=== PATIENT | female | born 1950 | race Asian ===

== ENCOUNTER 2017-12-15 23:28 | Outpatient (CLI) | payer MEDICARE | END 2017-12-15 23:29 | disposition short-term general hospital (02) | LOC: EMS 23:28 | PROVIDERS: ATTEND Surgery | DX: R55 Syncope and collapse (principal); R07.9 Chest pain, unspecified | CPT/HCPCS: A0425; A0427 ==

== ENCOUNTER 2022-01-28 14:34 | Outpatient (CLI) | payer MEDICARE | END 2022-01-28 14:35 | disposition left against medical advice (07) | LOC: EMS 14:34 | DX: R55 Syncope and collapse (principal) ==

== ENCOUNTER 2022-03-25 08:00 | Outpatient (CLI) | payer MEDICARE | END 2022-03-25 23:59 | disposition home or self-care (01) | LOC: LAB 08:00 | PROVIDERS: ATTEND Registered Nurse | DX: R25.1 Tremor, unspecified (principal); R82.79 Other abnormal findings on microbiological examination of urine; R30.0 Dysuria; R35.0 Frequency of micturition | CPT/HCPCS: 87086 ==

== ENCOUNTER 2022-03-25 14:35 | Outpatient (CLI) | payer MEDICARE ==
[2022-03-25 19:57] LABS: BASOPHILS # (AUTO) 0.1 10^3/uL (0.0-0.1); BASOPHILS % (AUTO) 0.8 %; EOSINOPHILS # (AUTO) 0.2 10^3/uL (0.0-0.7); EOSINOPHILS % (AUTO) 2.7 %; HGB - HEMOGLOBIN 10.6 g/dL (12.0-16.0); LYMPHOCYTES # (AUTO) 3.2 10^3/uL (1.5-3.5); MEAN CORPUSCULAR HEMOGLOBIN 29.4 pg (27.0-31.0); MEAN CORPUSCULAR HGB CONC 30.3 g/dL (32.0-36.0); MEAN CORPUSCULAR VOLUME 97.2 fL (81.0-99.0); MEAN PLATELET VOLUME 8.6 fL (7.9-10.8); MONOCYTES # (AUTO) 0.6 10^3/uL (0.0-1.0); MONOCYTES % (AUTO) 7.8 %; NEUTROPHILS # (AUTO) 3.8 10^3/uL (1.5-6.6); NEUTROPHILS % (AUTO) 48.4 %; PLT - PLATELET COUNT 394 10^3/uL (130-450); RED CELL DISTRIBUTION WIDTH 19.8 % (12.0-15.0); WHITE BLOOD COUNT 7.9 x10^3/uL (4.8-10.8)
[2022-03-25 20:11] LABS: ALBUMIN 3.8 g/dL (3.2-5.5); ALBUMIN/GLOBULIN RATIO 1.2 (1.0-2.2); BILIRUBIN,TOTAL 0.5 mg/dL (0.2-1.0); CREATININE 0.9 mg/dL (0.4-1.0); TOTAL PROTEIN 7.1 g/dL (6.7-8.2)
[2022-03-25 20:29] LABS: THYROID STIMULATING HORMONE 0.87 uIU/mL (0.34-5.60)
== END 2022-03-25 14:36 | disposition home or self-care (01) ==
LOC: LAB.S 14:35
PROVIDERS: ATTEND Emergency Medicine
DX: R20.2 Paresthesia of skin (principal); R25.1 Tremor, unspecified
CPT/HCPCS: 36415; 80053; 84443; 85025

== ENCOUNTER 2022-08-31 18:27 | Outpatient (CLI) | payer MEDICARE ==
--- NOTE | 2022-08-31 19:53 | XRAY Report ---
PROCEDURE: Lumbar Spine 2 View INDICATIONS: LUMBAR PAIN AFTER FALL TECHNIQUE: 3 views of the lumbar spine were acquired. COMPARISON: None. FINDINGS: Bones: Generalized osteopenia. 5 [id number]-apuaxms vertebrae are present. There is mild levoconvex cur vature of the thoracolumbar spine. Mild grade 1 anterolisthesis of L4 on L5 is seen measuring 4 mm. 4 mm grade 1 anterolisthesis is also seen at L5 on S1. No vertebral body compression fractures. No conte spicious bony lesions. Multilevel disc space narrowing and degenerative endplate changes are most pr ominent at L5-S1 level. There is facet hypertrophy that is most prominent at L3-4 through L5-S1. Soft tissues: Overlying bowel gas pattern is normal. Aortic atherosclerotic calcifications are prese nt. Proximal common iliac artery calcifications appear dilated, and aneurysmal dilatation is not excl uded. IMPRESSION: 1.Generalized osteopenia. No acute vertebral body compression fracture identified. 2.Moderate multilevel spondylosis and degenerative spondylolisthesis. 3.Aortic atherosclerosis. Common iliac arteries appear mildly dilated proximally and aneurysmal dilat ation is not excluded. Aortic ultrasound could be performed for further evaluation if indicated clini da. Reviewed by: Brandon Scott MD on 08/31/2022 7:51 PM PST Approved by: Brandon Scott MD on 08/31/2022 7:51 PM PST Station ID: [id number]
--- NOTE | 2022-08-31 20:01 | XRAY Report ---
PROCEDURE: Elbow 3 View RT INDICATIONS: RIGHT ELBOW PAIN AFTER FALL TECHNIQUE: 3 views of the elbow were acquired. COMPARISON: None. FINDINGS: Bones: No acute fractures or dislocations. No suspicious bony lesions. Soft tissues: Possible posterior fat pad may indicate a small effusion. However, lateral view is very mildly rotated. No suspicious soft tissue calcifications. Small posterior olecranon enthesophyte. Nonspecific soft tissue prominence over the olecranon process. IMPRESSION: No acute osseous abnormality identified. However, suspected small joint effusion raises the possibili ty of a radiographically occult fracture. Recommend correlation with clinical signs and symptoms and possible follow-up radiographs in 7-10 days, versus MRI or CT if indicated clinically. Reviewed by: Brandon Scott MD on 08/31/2022 7:59 PM PST Approved by: Brandon Scott MD on 08/31/2022 7:59 PM PST Station ID: [id number]
== END 2022-08-31 18:28 | disposition home or self-care (01) ==
LOC: DI.S 18:27
PROVIDERS: ATTEND Registered Nurse
DX: M47.816 Spondylosis without myelopathy or radiculopathy, lumbar region (principal); M85.88 Other specified disorders of bone density and structure, other site; M47.817 Spondylosis without myelopathy or radiculopathy, lumbosacral region; M43.17 Spondylolisthesis, lumbosacral region; I70.0 Atherosclerosis of aorta; M25.521 Pain in right elbow

== ENCOUNTER 2022-09-04 14:34 | Outpatient (CLI) | payer MEDICARE ==
[2022-09-04 20:05] LABS: BASOPHILS # (AUTO) 0.1 10^3/uL (0.0-0.1); BASOPHILS % (AUTO) 0.6 %; EOSINOPHILS # (AUTO) 0.1 10^3/uL (0.0-0.7); EOSINOPHILS % (AUTO) 0.9 %; HCT - HEMATOCRIT 32.3 % (37.0-47.0); HGB - HEMOGLOBIN 9.9 g/dL (12.0-16.0); LYMPHOCYTES # (AUTO) 3.1 10^3/uL (1.5-3.5); LYMPHOCYTES % (AUTO) 29.8 %; MEAN CORPUSCULAR HEMOGLOBIN 29.2 pg (27.0-31.0); MEAN CORPUSCULAR HGB CONC 30.7 g/dL (32.0-36.0); MEAN CORPUSCULAR VOLUME 95.3 fL (81.0-99.0); MEAN PLATELET VOLUME 8.5 fL (7.9-10.8); MONOCYTES # (AUTO) 0.7 10^3/uL (0.0-1.0); MONOCYTES % (AUTO) 6.8 %; NEUTROPHILS # (AUTO) 6.4 10^3/uL (1.5-6.6); NEUTROPHILS % (AUTO) 61.6 %; PLT - PLATELET COUNT 310 10^3/uL (130-450); RED BLOOD COUNT 3.39 10^6/uL (4.20-5.40); RED CELL DISTRIBUTION WIDTH 18.7 % (12.0-15.0); WHITE BLOOD COUNT 10.4 x10^3/uL (4.8-10.8)
[2022-09-04 21:38] LABS: ESTIMATED AVERAGE GLUCOSE 117 mg/dL (70-100); HEMOGLOBIN A1c% 5.7 % (4.27-6.07)
== END 2022-09-04 14:35 | disposition home or self-care (01) ==
LOC: LAB.S 14:34
PROVIDERS: ATTEND Registered Nurse
DX: R73.09 Other abnormal glucose (principal); R00.0 Tachycardia, unspecified; E66.9 Obesity, unspecified
CPT/HCPCS: 36415; 83036; 85025

== ENCOUNTER 2022-09-10 14:47 | Outpatient (CLI) | payer MEDICARE ==
[2022-09-10 19:52] LABS: ABSOLUTE RETICS # AUTO 0.039 10^6/uL (0.020-0.110); RED BLOOD COUNT 3.43 10^6/uL (4.20-5.40); RETICULOCYTE COUNT % (AUTO) 1.15 % (0.5-2.3)
[2022-09-10 20:08] LABS: % IRON SATURATION 6 % (20-50); IRON 18 ug/dL (28-170); TOTAL IRON BINDING CAPACITY 325 ug/dL (250-450); TRANSFERRIN 232 mg/dL (192-382)
== END 2022-09-10 14:48 | disposition home or self-care (01) ==
LOC: LAB.S 14:47
PROVIDERS: ATTEND Registered Nurse
DX: D50.9 Iron deficiency anemia, unspecified (principal)
CPT/HCPCS: 36415; 82607; 82728; 82746; 83540; 84466; 85045

== ENCOUNTER 2022-10-09 12:33 | Outpatient (CLI) | payer MEDICARE ==
[2022-10-09 14:56] LABS: BASOPHILS # (AUTO) 0.1 10^3/uL (0.0-0.1); BASOPHILS % (AUTO) 0.7 %; EOSINOPHILS # (AUTO) 0.2 10^3/uL (0.0-0.7); EOSINOPHILS % (AUTO) 2.5 %; HCT - HEMATOCRIT 34.1 % (37.0-47.0); HGB - HEMOGLOBIN 10.6 g/dL (12.0-16.0); LYMPHOCYTES # (AUTO) 2.9 10^3/uL (1.5-3.5); LYMPHOCYTES % (AUTO) 37.9 %; MEAN CORPUSCULAR HEMOGLOBIN 30.3 pg (27.0-31.0); MEAN CORPUSCULAR HGB CONC 31.1 g/dL (32.0-36.0); MEAN CORPUSCULAR VOLUME 97.4 fL (81.0-99.0); MEAN PLATELET VOLUME 8.9 fL (7.9-10.8); MONOCYTES # (AUTO) 0.9 10^3/uL (0.0-1.0); MONOCYTES % (AUTO) 11.2 %; NEUTROPHILS # (AUTO) 3.6 10^3/uL (1.5-6.6); NEUTROPHILS % (AUTO) 47.4 %; PLT - PLATELET COUNT 290 10^3/uL (130-450); RED CELL DISTRIBUTION WIDTH 17.4 % (12.0-15.0); WHITE BLOOD COUNT 7.7 x10^3/uL (4.8-10.8)
[2022-10-09 15:53] LABS: ALBUMIN 3.9 g/dL (3.2-5.5); ALBUMIN/GLOBULIN RATIO 1.2 (1.0-2.2); BILIRUBIN,TOTAL 0.5 mg/dL (0.2-1.0); CALCIUM 9.1 mg/dL (8.5-10.3); CREATININE 0.9 mg/dL (0.4-1.0); MAGNESIUM 2.2 mg/dL (1.7-2.8); POTASSIUM 3.8 mmol/L (3.5-5.0); TOTAL PROTEIN 7.1 g/dL (6.7-8.2)
== END 2022-10-09 12:34 | disposition home or self-care (01) ==
LOC: LAB.S 12:33
PROVIDERS: ATTEND Registered Nurse
DX: D50.9 Iron deficiency anemia, unspecified (principal); I70.0 Atherosclerosis of aorta; E66.9 Obesity, unspecified; R00.0 Tachycardia, unspecified; R53.83 Other fatigue
CPT/HCPCS: 36415; 80053; 81599; 83540; 83735; 84466; 85025; 86038; 86225; 86235

== ENCOUNTER 2022-10-16 13:54 | Outpatient (CLI) | payer MEDICARE ==
[2022-10-16 19:58] LABS: BASOPHILS # (AUTO) 0.1 10^3/uL (0.0-0.1); EOSINOPHILS # (AUTO) 0.2 10^3/uL (0.0-0.7); EOSINOPHILS % (AUTO) 2.6 %; HCT - HEMATOCRIT 35.9 % (37.0-47.0); HGB - HEMOGLOBIN 10.9 g/dL (12.0-16.0); LYMPHOCYTES % (AUTO) 39.3 %; MEAN CORPUSCULAR HEMOGLOBIN 29.5 pg (27.0-31.0); MEAN CORPUSCULAR HGB CONC 30.4 g/dL (32.0-36.0); MEAN PLATELET VOLUME 9.3 fL (7.9-10.8); MONOCYTES # (AUTO) 0.7 10^3/uL (0.0-1.0); MONOCYTES % (AUTO) 9.4 %; NEUTROPHILS # (AUTO) 3.6 10^3/uL (1.5-6.6); NEUTROPHILS % (AUTO) 47.6 %; PLT - PLATELET COUNT 321 10^3/uL (130-450); RED CELL DISTRIBUTION WIDTH 17.3 % (12.0-15.0); WHITE BLOOD COUNT 7.6 x10^3/uL (4.8-10.8)
[2022-10-16 20:18] LABS: ALBUMIN 3.8 g/dL (3.2-5.5); ALBUMIN/GLOBULIN RATIO 1.3 (1.0-2.2); BILIRUBIN,TOTAL 0.5 mg/dL (0.2-1.0); CALCIUM 9.1 mg/dL (8.5-10.3); POTASSIUM 4.3 mmol/L (3.5-5.0); TOTAL PROTEIN 6.8 g/dL (6.7-8.2)
[2022-10-16 21:18] LABS: FOLATE > 49.60 ng/mL (5.90 - >24.8)
== END 2022-10-16 13:55 | disposition home or self-care (01) ==
LOC: LAB.S 13:54
PROVIDERS: ATTEND Registered Nurse
DX: E87.1 Hypo-osmolality and hyponatremia (principal); D50.9 Iron deficiency anemia, unspecified
CPT/HCPCS: 36415; 80053; 82607; 82746; 83540; 84466; 85025

== ENCOUNTER 2023-01-18 08:00 | Outpatient (CLI) | payer MEDICARE ==
[2023-01-18 20:29] LABS: BASOPHILS # (AUTO) 0.1 10^3/uL (0.0-0.1); BASOPHILS % (AUTO) 0.7 %; EOSINOPHILS # (AUTO) 0.2 10^3/uL (0.0-0.7); HCT - HEMATOCRIT 37.3 % (37.0-47.0); HGB - HEMOGLOBIN 11.8 g/dL (12.0-16.0); LYMPHOCYTES # (AUTO) 2.9 10^3/uL (1.5-3.5); LYMPHOCYTES % (AUTO) 43.9 %; MEAN CORPUSCULAR HGB CONC 31.6 g/dL (32.0-36.0); MEAN CORPUSCULAR VOLUME 101.1 fL (81.0-99.0); MEAN PLATELET VOLUME 9.5 fL (7.9-10.8); MONOCYTES # (AUTO) 0.7 10^3/uL (0.0-1.0); MONOCYTES % (AUTO) 10.5 %; NEUTROPHILS # (AUTO) 2.8 10^3/uL (1.5-6.6); NEUTROPHILS % (AUTO) 41.8 %; PLT - PLATELET COUNT 281 10^3/uL (130-450); RED BLOOD COUNT 3.69 10^6/uL (4.20-5.40); RED CELL DISTRIBUTION WIDTH 15.5 % (12.0-15.0); WHITE BLOOD COUNT 6.7 x10^3/uL (4.8-10.8)
[2023-01-18 20:35] LABS: ALBUMIN 3.7 g/dL (3.2-5.5); ALBUMIN/GLOBULIN RATIO 1.2 (1.0-2.2); BILIRUBIN,TOTAL 0.2 mg/dL (0.2-1.0); CALCIUM 8.9 mg/dL (8.5-10.3); CREATININE 0.9 mg/dL (0.4-1.0); CRP - C-REACTIVE PROTEIN 1.9 mg/dL (0-1.0); POTASSIUM 4.1 mmol/L (3.5-5.0); TOTAL PROTEIN 6.9 g/dL (6.7-8.2)
== END 2023-01-18 23:59 | disposition home or self-care (01) ==
LOC: LAB.R 08:00
PROVIDERS: ATTEND Internal Medicine Rheumatology
DX: M05.79 Rheumatoid arthritis with rheumatoid factor of multiple sites without organ or systems involvement (principal); Z79.899 Other long term (current) drug therapy
CPT/HCPCS: 80053; 85025; 86140

== ENCOUNTER 2023-08-27 12:37 | Outpatient (CLI) | payer MEDICARE ==
[2023-08-27 17:52] LABS: FERRITIN 23.2 ng/mL (11.0-306.8)
== END 2023-08-27 12:38 | disposition home or self-care (01) ==
LOC: LAB.S 12:37
PROVIDERS: ATTEND Internal Medicine
DX: D64.9 Anemia, unspecified (principal)
CPT/HCPCS: 36415; 82728; 82746; 83540; 83921; 84466

== ENCOUNTER 2023-09-29 11:12 | Outpatient (CLI) | payer MEDICARE ==
[2023-09-29 14:29] LABS: BASOPHILS # (AUTO) 0.1 10^3/uL (0.0-0.1); BASOPHILS % (AUTO) 1.1 %; EOSINOPHILS # (AUTO) 0.3 10^3/uL (0.0-0.7); EOSINOPHILS % (AUTO) 4.4 %; HCT - HEMATOCRIT 38.3 % (37.0-47.0); HGB - HEMOGLOBIN 12.5 g/dL (12.0-16.0); LYMPHOCYTES # (AUTO) 2.3 10^3/uL (1.5-3.5); LYMPHOCYTES % (AUTO) 36.1 %; MEAN CORPUSCULAR HEMOGLOBIN 34.1 pg (27.0-31.0); MEAN CORPUSCULAR HGB CONC 32.6 g/dL (32.0-36.0); MEAN CORPUSCULAR VOLUME 104.4 fL (81.0-99.0); MEAN PLATELET VOLUME 9.4 fL (7.9-10.8); MONOCYTES # (AUTO) 0.8 10^3/uL (0.0-1.0); MONOCYTES % (AUTO) 11.8 %; NEUTROPHILS % (AUTO) 46.3 %; PLT - PLATELET COUNT 329 10^3/uL (130-450); RED BLOOD COUNT 3.67 10^6/uL (4.20-5.40); RED CELL DISTRIBUTION WIDTH 18.8 % (12.0-15.0); WHITE BLOOD COUNT 6.4 x10^3/uL (4.8-10.8)
[2023-09-29 14:39] LABS: SLIDE REVIEW? Indicated
[2023-09-29 14:55] LABS: PLATELET ESTIMATE, MANUAL NORMAL (130-450,000) (NORMAL); PLATELET MORPHOLOGY NORMAL APPEARANCE (NORMAL); RBC MORPHOLOGY (MULTIPLE) 2+ ANISOCYTOSIS (NORMAL)
== END 2023-09-29 11:13 | disposition home or self-care (01) ==
LOC: LAB.S 11:12
PROVIDERS: ATTEND Internal Medicine
DX: E61.1 Iron deficiency (principal)
CPT/HCPCS: 36415; 82728; 83921; 85025

== ENCOUNTER 2023-10-03 10:25 | Emergency (ER) | payer MEDICARE ==
[2023-10-03 11:22] VITALS: BP 138/93; O2SAT 94
--- NOTE | 2023-10-03 12:11 | ED Physician Documentation ---
History of Present Illness - Stated complaint Stated Complaint: NUMBNESS HANDS/SHAKING - Chief complaint Chief Complaint: General - History obtained from History obtained from: Patient - Additonal information Additional information: 73 yo F presents reporting concerns about her iron level. She had it drawn a few days ago in the clinic and it is not back yet and that has made her worried. She has had it in the past and received the results the next day .She is taking iron supplementation as directed, recently switched from pills to liquid however due to better tolerance. She has not had any bleeding, no dizziness or syncope/near syncope. She doesn't know if she was anemic but states PCP was following her iron. She also reports tingling in her hands for a couple of years and this has been attributed to a reaction to the Covid 19 vaccine according to patient. This is not a new issue and is not worse than normal. She is also worried about dry mouth. Her mouth feels really dry particularly at night time and it is uncomfortable to her. She is drinking water frequently and also takes electrolyte solutions. She uses cough drops sometimes to wet her mouth but wants to know why it is always dry. No new medications. No fever/chills, cough or URI sx, cp, dyspnea, abd pain, n/v/d or change in urination or outpt. Review of Systems Constitutional: reports: Reviewed and negative Eyes: reports: Reviewed and negative Ears: reports: Reviewed and negative Nose: reports: Reviewed and negative Throat: reports: Reviewed and negative Cardiac: reports: Reviewed and negative Respiratory: reports: Reviewed and negative GI: reports: Reviewed and negative : reports: Reviewed and negative Skin: reports: Reviewed and negative Musculoskeletal: reports: Reviewed and negative Neurologic: reports: Reviewed and negative PD PAST MEDICAL HISTORY - Past Medical History Past Medical History: Yes Cardiovascular: [place] Respiratory: None Neuro: None Endocrine/Autoimmune: None GI: None COLLEGE OR [employer]IV[employer]ITY [employer]MENT HEAD: None : None HEENT: None Musculoskeletal: Rheumatoid arthritis, Osteoporosis Derm: None - Past Surgical History Past Surgical History: Yes Cardiovascular: Coronary stent - Present Medications Home Medications: Ambulatory Orders Medication Instructions Recorded Confirmed Leucovorin Calcium 5 mg PO DAILY 10/03/23 10/03/23 Magnesium 250 mg PO BID #60 tablet 10/03/23 Methotrexate [Methotrexate Sodium] 8 tab PO DAILY 10/03/23 10/03/23 Rosuvastatin Calcium [Crestor] 5 mg PO HS 10/03/23 10/03/23 Saliva Stimulant [place] [Biotene 1 ml PO Q4H #44.3 ml 10/03/23 Moisturizing Mouth [place]] Valacyclovir HCl [Valtrex] 1,000 mg PO DAILY 10/03/23 10/03/23 amLODIPine [Norvasc] 5 mg PO DAILY 10/03/23 10/03/23 lisinopriL [Lisinopril] 20 mg ORAL BID 10/03/23 10/03/23 - Allergies Allergies/Adverse Reactions: Allergies Allergy/AdvReac Type Severity Reaction Status Date / Time COVID-19 (SARS-CoV-2) Allergy Edema Verified 10/03/23 10:56 vaccine, silas - Social History Does the pt smoke?: No Smoking Status: Former smoker Does the pt drink ETOH?: Yes Does the pt have substance abuse?: Yes Substance Use and Type: Marijuana - Immunizations Immunizations are current?: No Immunizations: Other immun not current PD ED PE NORMAL - Vitals Vital signs reviewed: Yes - General General: No acute distress, Well developed/nourished - HEENT HEENT: Atraumatic, Moist mucous membranes, Pharynx benign - Neck Neck: Supple, no meningeal sign, No JVD - Cardiac Cardiac: RRR, No murmur, No gallop, No rub - Respiratory Respiratory: No respiratory distress, Clear bilaterally - Derm Derm: Normal color, Warm and dry, No rash - Extremities Extremities: No deformity, No tenderness to palpate, Normal ROM s pain, No edema, No calf tenderness / cord - Neuro Neuro: Alert and oriented X 3 Eye Opening: Spontaneous Motor: Obeys Commands Verbal: Oriented GCS Score: 15 - Psych Psych: Normal mood, Other (anxious affect) Results - Vitals Vitals: Vital Signs - 24 hr 10/03/23 10:57 Temperature 37.1 C Heart Rate 103 H Respiratory 18 Rate Blood Pressure 138/93 H O2 Saturation 94 Oxygen O2 Source Room air - Labs Labs: Laboratory Tests 10/03/23 10/03/23 12:17 12:17 WBC 6.9 RBC 3.76 L Hgb 12.6 Hct 38.5 MCV 102.4 H MCH 33.5 H MCHC 32.7 RDW 18.5 H Plt Count 263 MPV 8.4 Neut # (Auto) 3.7 Lymph # (Auto) 1.9 [place] # (Auto) 1.0 Eos # (Auto) 0.2 Baso # (Auto) 0.1 Absolute Nucleated RBC 0.00 Nucleated RBC % 0.0 Sodium 130 L Potassium 3.8 Chloride 99 L Carbon Dioxide 24 Anion Gap 7.0 BUN 11 Creatinine 0.8 Estimated GFR (MDRD) 71 L Glucose 110 H Calcium 9.3 Total Bilirubin 0.5 AST 20 ALT 15 Alkaline Phosphatase 82 Total Protein 7.0 Albumin 4.2 Globulin 2.8 Albumin/Globulin Ratio 1.5 Lipase 25 PD Medical Decision Making - ED course Complexity details: reviewed results, re-evaluated patient, considered differential, d/w patient ED course: 73 yo F presented w/ several issues today including dry mouth, chronic fingertip paraesthesias, and worried about her iron levels. I discussed w/ pt that it sounded as though this was all being monitored by her PCP and that she would likely receive the iron studies after the holidays. We did obtain a CBC however to monitor H/H and this was stable. She was advised to continue iron supplementation until reviews iron studies w/ PCP. In regards to finger paraestheisas, this is not a new issue and I don't have much to offer. Gabapentin may be helpful but will defer to PCP since this has been a chronic issue and is not emergent today. The dry mouth may be med induced or psychogenic. I discussed supportive measures like saliva replacement, gum, humidifier. I did obtain BMP that shoes a Na of 130 which may be secondary to polydipsia. She has no polyuria however so I think less likely DI. I encouraged her to avoid drinking excess free water and drink some electrolyte solution when she is taking fluids. We discussed supportive measures for dry mouth. I advised to continue discussion w/ PCP at next visit, recheck sodium in a week or two. Return precautions reviewed. Of note, I did start pt on low dose magnesium. This may help some of her generalized anxiety sx. Departure - Departure Disposition: 01 Home, Self Care Clinical Impression: Hand paresthesia, Low serum sodium, Dry mouth Condition: Good Instructions: ED Paraesthesias Prescriptions: Saliva Stimulant [place] [Biotene Moisturizing Mouth [place]] 1 ml PO Q4H #44.3 ml Magnesium 250 mg PO BID #60 tablet Comments: Ashley, your labs today are stable, though your sodium slightly low but your other labs are reassuring. Please continue follow-up with your primary doctor for your iron levels as I did not check them today but your hemoglobin and hematocrit are stable. I think you might benefit from starting on a magnesium supplementation which may help some of your nervous system symptoms. I have ordered this supplement but it is also available [id number]. In regards to your dry mouth, there are [id number] saliva supplements and you may consider having humidifier in your bedroom to help with the symptoms. Try to incorporate electrolyte solutions so you are not always drinking plain water. Use gum or hard candies to keep mouth moisturized. Forms: PCP List Discharge Date/Time: 10/03/23 12:55
[2023-10-03 12:22] LABS: BASOPHILS # (AUTO) 0.1 10^3/uL (0.0-0.1); BASOPHILS % (AUTO) 0.9 %; EOSINOPHILS # (AUTO) 0.2 10^3/uL (0.0-0.7); EOSINOPHILS % (AUTO) 2.6 %; HCT - HEMATOCRIT 38.5 % (37.0-47.0); HGB - HEMOGLOBIN 12.6 g/dL (12.0-16.0); LYMPHOCYTES # (AUTO) 1.9 10^3/uL (1.5-3.5); LYMPHOCYTES % (AUTO) 27.7 %; MEAN CORPUSCULAR HEMOGLOBIN 33.5 pg (27.0-31.0); MEAN CORPUSCULAR HGB CONC 32.7 g/dL (32.0-36.0); MEAN CORPUSCULAR VOLUME 102.4 fL (81.0-99.0); MEAN PLATELET VOLUME 8.4 fL (7.9-10.8); MONOCYTES % (AUTO) 14.4 %; NEUTROPHILS # (AUTO) 3.7 10^3/uL (1.5-6.6); NEUTROPHILS % (AUTO) 54.3 %; PLT - PLATELET COUNT 263 10^3/uL (130-450); RED BLOOD COUNT 3.76 10^6/uL (4.20-5.40); RED CELL DISTRIBUTION WIDTH 18.5 % (12.0-15.0); WHITE BLOOD COUNT 6.9 x10^3/uL (4.8-10.8)
[2023-10-03 12:39] LABS: ALBUMIN 4.2 g/dL (3.2-5.5); ALBUMIN/GLOBULIN RATIO 1.5 (1.0-2.2); BILIRUBIN,TOTAL 0.5 mg/dL (0.2-1.0); CALCIUM 9.3 mg/dL (8.5-10.3); CREATININE 0.8 mg/dL (0.6-1.3); POTASSIUM 3.8 mmol/L (3.5-4.5)
== END 2023-10-03 12:55 | disposition home or self-care (01) ==
LOC: ED 10:25
DX: R20.2 Paresthesia of skin (principal); R68.2 Dry mouth, unspecified; R79.89 Other specified abnormal findings of blood chemistry; Z87.891 Personal history of nicotine dependence
CPT/HCPCS: 36415; 80053; 83690; 85025; 99283

== ENCOUNTER 2023-10-16 15:25 | Outpatient (CLI) | payer MEDICARE ==
[2023-10-16 16:10] LABS: BASOPHILS # (AUTO) 0.1 10^3/uL (0.0-0.1); EOSINOPHILS # (AUTO) 0.4 10^3/uL (0.0-0.7); EOSINOPHILS % (AUTO) 4.2 %; HCT - HEMATOCRIT 37.9 % (37.0-47.0); HGB - HEMOGLOBIN 12.5 g/dL (12.0-16.0); LYMPHOCYTES # (AUTO) 2.4 10^3/uL (1.5-3.5); LYMPHOCYTES % (AUTO) 26.7 %; MEAN CORPUSCULAR HEMOGLOBIN 34.3 pg (27.0-31.0); MEAN CORPUSCULAR VOLUME 104.1 fL (81.0-99.0); MEAN PLATELET VOLUME 8.6 fL (7.9-10.8); MONOCYTES # (AUTO) 1.1 10^3/uL (0.0-1.0); NEUTROPHILS % (AUTO) 55.9 %; PLT - PLATELET COUNT 288 10^3/uL (130-450); RED BLOOD COUNT 3.64 10^6/uL (4.20-5.40); RED CELL DISTRIBUTION WIDTH 17.6 % (12.0-15.0); WHITE BLOOD COUNT 8.9 x10^3/uL (4.8-10.8)
[2023-10-16 16:21] LABS: PARTIAL THROMBOPLASTIN TIME 26.6 secs (24.9-33.3)
[2023-10-16 16:25] LABS: INR 1.1 (0.8-1.2)
--- NOTE | 2023-10-16 16:48 | XRAY Report ---
PROCEDURE: Chest 2V INDICATIONS: OTHER LESIONS OF ORAL MUCOSA,FATIGUE TECHNIQUE: 2 views of the chest were acquired. COMPARISON: June 24, 2023 FINDINGS: Surgical changes and devices: None. Lungs and pleura: No pleural effusions or pneumothorax. Lungs are clear. Mediastinum: Hiatal hernia. Heart size is normal. Bones and chest wall: No suspicious bony lesions. Overlying soft tissues appear unremarkable. IMPRESSION: No acute cardiopulmonary process. Reviewed by: Moi Grimm MD on 10/16/2023 3:46 PM [facility] Approved by: Moi Grimm MD on 10/16/2023 3:46 PM [facility] Station ID: [id number]
[2023-10-16 16:52] LABS: ALBUMIN 4.2 g/dL (3.2-5.5); ALBUMIN/GLOBULIN RATIO 1.4 (1.0-2.2); BILIRUBIN,TOTAL 0.3 mg/dL (0.2-1.0); CALCIUM 9.7 mg/dL (8.5-10.3); CREATININE 0.7 mg/dL (0.6-1.3); CRP - C-REACTIVE PROTEIN 0.9 mg/dL (<0.5); POTASSIUM 4.1 mmol/L (3.5-4.5); TOTAL PROTEIN 7.1 g/dL (6.4-8.9)
[2023-10-16 16:59] LABS: THYROID STIMULATING HORMONE 0.87 uIU/mL (0.34-5.60)
[2023-10-16 17:07] LABS: FERRITIN 46.2 ng/mL (11.0-306.8)
[2023-10-16 20:50] LABS: ESTIMATED AVERAGE GLUCOSE 120 mg/dL (70-100); HEMOGLOBIN A1c% 5.8 % (4.27-6.07)
[2023-10-18 08:12] LABS: HCV AB Non Reactive (Non Reactive)
[2023-10-18 16:10] LABS: VITAMIN D 25-HYDROXY 39.2 ng/mL (30.0-100.0)
[2023-10-19 15:08] LABS: ANTINUCLEAR ANTIBODIES IFA Negative (.)
== END 2023-10-16 15:26 | disposition home or self-care (01) ==
LOC: LAB 15:25
PROVIDERS: ATTEND Registered Nurse
DX: K13.79 Other lesions of oral mucosa (principal); R53.83 Other fatigue; R53.81 Other malaise; D84.9 Immunodeficiency, unspecified; R76.0 Raised antibody titer; E61.1 Iron deficiency; E87.1 Hypo-osmolality and hyponatremia; R00.0 Tachycardia, unspecified; R20.2 Paresthesia of skin; R20.0 Anesthesia of skin
CPT/HCPCS: 36415; 80053; 82306; 82607; 82728; 82746; 83036; 83540; 83735; 84439; 84443; 84466; 84481; 85025; 85610; 85651; 85730; 86038; 86140; 86803

== ENCOUNTER 2023-10-18 08:00 | Outpatient (CLI) | payer MEDICARE ==
[2023-10-18 14:44] LABS: FECAL OCCULT BLOOD (FIT) NEGATIVE (NEGATIVE)
== END 2023-10-18 23:59 | disposition home or self-care (01) ==
LOC: LAB.R 08:00
PROVIDERS: ATTEND Registered Nurse
DX: K13.79 Other lesions of oral mucosa (principal); R53.83 Other fatigue; R53.81 Other malaise; D84.9 Immunodeficiency, unspecified; R76.0 Raised antibody titer; E61.1 Iron deficiency; E87.1 Hypo-osmolality and hyponatremia; R00.0 Tachycardia, unspecified; R20.2 Paresthesia of skin; R20.0 Anesthesia of skin
CPT/HCPCS: 82274

== ENCOUNTER 2023-10-18 10:23 | Outpatient (CLI) | payer MEDICARE | END 2023-10-18 10:24 | disposition home or self-care (01) | LOC: LAB.S 10:23 | PROVIDERS: ATTEND Registered Nurse | DX: K13.79 Other lesions of oral mucosa (principal); R53.83 Other fatigue; R53.81 Other malaise; D84.9 Immunodeficiency, unspecified; R76.0 Raised antibody titer; E61.1 Iron deficiency; E87.1 Hypo-osmolality and hyponatremia; R00.0 Tachycardia, unspecified; R20.2 Paresthesia of skin; R20.0 Anesthesia of skin ==

== ENCOUNTER 2023-11-19 07:00 | Outpatient (CLI) | payer MEDICARE ==
--- NOTE | 2023-11-19 14:35 | XRAY Report ---
PROCEDURE: Chest 2V INDICATIONS: BRONCHITIS TECHNIQUE: 2 views of the chest were acquired. COMPARISON: Chest x-ray 10/16/2023 FINDINGS: Surgical changes and devices: None. Lungs and pleura: Interval linear opacity in the left base. Mediastinum: Mediastinal contours appear normal. Heart size is normal. Bones and chest wall: No suspicious bony lesions. Overlying soft tissues appear unremarkable. IMPRESSION: Interval linear left basilar opacity likely atelectasis. Reviewed by: Chandni Pedro MD on 11/19/2023 2:33 PM PST Approved by: Chandni Pedro MD on 11/19/2023 2:33 PM [facility] Station ID: [id number]
== END 2023-11-19 23:59 | disposition home or self-care (01) ==
LOC: DI.S 07:00
PROVIDERS: ATTEND Physician Assistant
DX: J20.9 Acute bronchitis, unspecified (principal); R91.8 Other nonspecific abnormal finding of lung field

== ENCOUNTER 2023-12-07 12:59 | Outpatient (CLI) | payer MEDICARE | END 2023-12-07 23:59 | disposition critical access hospital (66) | LOC: EMS 12:59 | DX: R55 Syncope and collapse (principal); R06.02 Shortness of breath; R53.1 Weakness | CPT/HCPCS: A0425; A0427 ==

== ENCOUNTER 2023-12-07 13:23 | Emergency (ER) | payer MEDICARE ==
--- NOTE | 2023-12-07 13:36 | ED Physician Documentation ---
PD HPI SYNCOPE - Stated complaint Stated Complaint: NEAR SYNCOPE - History obtained from History obtained from: Patient, EMS - History of Present Illness Witnessed: Witnessed Timing - onset: How many hours ago (1) Duration: Minutes Preceding symptoms: Diaphoresis, Nausea / vomiting, Light headed. No: Headache, Chest pain, Palpitations, Abdominal pain Associated symptoms: Other (recent illness viral flu-like 2 weeks ago. Still with mild cough/malaise, but back to mainly normal activity.). No: Seizure Contributing factors: Other (was taking hot shower. Had been feeling okay earlier in day. Worked out with combo of cardio and strengthening. Okay during that. Was taking hot shower about hour after finishing and felt lightheaded. Sat on toilet and did not fully pass out. EMS noted BP low at 80s systolic on arrival. Improved.). No: Recent med change Injury occurred: No: Fell, Head injury, Neck injury Review of Systems Constitutional: denies: Fever, Chills Nose: denies: Rhinorrhea / runny nose, Congestion Throat: denies: Sore throat Cardiac: denies: Chest pain / pressure Respiratory: reports: Cough GI: denies: Abdominal Pain, Vomiting, Diarrhea, Bloody / black stool PD PAST MEDICAL HISTORY - Past Medical History Cardiovascular: [place] Respiratory: None Neuro: None Endocrine/Autoimmune: None GI: None LENS EDGER: None : None HEENT: None Musculoskeletal: Rheumatoid arthritis, Osteoporosis Derm: None - Past Surgical History Past Surgical History: Yes Cardiovascular: Coronary stent - Present Medications Home Medications: Ambulatory Orders Medication Instructions Recorded Confirmed Leucovorin Calcium 5 mg PO DAILY 10/03/23 12/07/23 Magnesium 250 mg PO BID #60 tablet 10/03/23 12/07/23 Methotrexate [Methotrexate Sodium] 8 tab PO DAILY 10/03/23 12/07/23 Rosuvastatin Calcium [Crestor] 5 mg PO HS 10/03/23 12/07/23 Saliva Stimulant [place] [Biotene 1 ml PO Q4H #44.3 ml 10/03/23 12/07/23 Moisturizing Mouth [place]] Valacyclovir HCl [Valtrex] 1,000 mg PO DAILY 10/03/23 12/07/23 amLODIPine [Norvasc] 5 mg PO DAILY 10/03/23 12/07/23 lisinopriL [Lisinopril] 20 mg ORAL BID 10/03/23 12/07/23 - Allergies Allergies/Adverse Reactions: Allergies Allergy/AdvReac Type Severity Reaction Status Date / Time COVID-19 (SARS-CoV-2) Allergy Edema Verified 12/07/23 13:44 vaccine, silas - Social History Does the pt smoke?: No Smoking Status: Former smoker Does the pt drink ETOH?: Yes Does the pt have substance abuse?: Yes - Immunizations Immunizations are current?: No Immunizations: Other immun not current PD ED PE NORMAL - Vitals Vital signs reviewed: Yes - General General: Alert and oriented X 3, No acute distress, Well developed/nourished - HEENT HEENT: Atraumatic, Pharynx benign - Neck Neck: Supple, no meningeal sign, No adenopathy - Cardiac Cardiac: RRR, No murmur - Respiratory Respiratory: No respiratory distress, Clear bilaterally - Abdomen Abdomen: Soft, Non tender - Derm Derm: Normal color, Warm and dry - Extremities Extremities: No edema, No calf tenderness / cord - Neuro Neuro: Alert and oriented X 3, No motor deficit, No sensory deficit, Normal speech Eye Opening: Spontaneous Motor: Obeys Commands Verbal: Oriented GCS Score: 15 Results - Vitals Vitals: Oxygen O2 Source Room air - EKG (time done) 14:13 EKG releavant findings:: EKG personally interpreted by author of this note. Relevant findings are: Rate: Rate (enter#) (85) Rhythm: NSR [place]: Normal Intervals: Normal [place] QRS: Normal Ischemia: Normal ST segments. No: ST elevation c/w ischemia, ST depression - Labs Labs: Laboratory Tests 12/07/23 12/07/23 14:08 14:08 WBC 6.9 RBC 3.63 L Hgb 12.7 Hct 39.2 MCV 108.0 H MCH 35.0 H MCHC 32.4 RDW 15.6 H Plt Count 258 MPV 8.8 Neut # (Auto) 4.0 Lymph # (Auto) 2.1 [place] # (Auto) 0.5 Eos # (Auto) 0.2 Baso # (Auto) 0.1 Absolute Nucleated RBC 0.00 Nucleated RBC % 0.0 Sodium 133 L Potassium 3.8 Chloride 101 Carbon Dioxide 24 Anion Gap 8.0 BUN 11 Creatinine 0.9 Estimated GFR (MDRD) 62 L Glucose 110 H Calcium 9.4 Magnesium 2.1 Total Bilirubin 0.4 AST 18 ALT 17 Alkaline Phosphatase 73 Total Protein 7.0 Albumin 3.9 Globulin 3.1 Albumin/Globulin Ratio 1.3 Lipase 19 - Rads (name of study) chest xray Relevant Findings:: Prelim report reviewed, EMP independent interpretation of test (no acute process; no infiltrates. ) PD Medical Decision Making - ED course Complexity details: reviewed results (ECG and CXR clear. Troponin normal and has been couple hours from incident by time of my ordering the orders.), considered differential (near syncope while takin ghot shower. Had exercises hour prior withut exertional symptoms. Seems well now. Positional lightheaded with near syncope. ), d/w patient Departure - Departure Disposition: 01 Home, Self Care Clinical Impression: Transient hypotension, Near syncope, History of recent pneumonia Condition: Stable Record reviewed to determine appropriate education?: Yes Instructions: ED Near Syncope Unkn Comments: Your EKG is normal. Your heart rhythm is normal here on the monitor. Your blood pressure has remained in the normal range. I presume your transient drop in blood pressure related to the dilating of the blood vessels related to the warmth of the shower may be in combination with the recent illness in your system just not responding appropriately. I do not see any more serious cause at this time. Your basic blood count is good and a chemistry panel shows normal electrolytes, blood sugar, kidney function. Your chest x-ray shows the resolution of the prior infiltrate/pneumonia. I presume the persisting cough is just residual inflammation through the bronchioles. I would anticipate that improving in the near future. You might consider holding your blood pressure medicine for the next few days to ensure you are still feeling well and less likely to have your blood pressure go low. Regular diet. If you are doing well after a few days then resume your normal medicines. Continue your other usual medicines. Regarding your dry mouth, you might consider holding cetirizine/Zyrtec for a week or 2 and see if it is any better. You can discuss with your risk control consultant about the dry mouth as it might relate to the rheumatoid or the methotrexate. Forms: PCP List Discharge Date/Time: 12/07/23 15:29
[2023-12-07 13:45] VITALS: BP 126/92; O2SAT 96
[2023-12-07 14:12] LABS: BASOPHILS # (AUTO) 0.1 10^3/uL (0.0-0.1); BASOPHILS % (AUTO) 0.7 %; EOSINOPHILS # (AUTO) 0.2 10^3/uL (0.0-0.7); EOSINOPHILS % (AUTO) 2.9 %; HCT - HEMATOCRIT 39.2 % (37.0-47.0); HGB - HEMOGLOBIN 12.7 g/dL (12.0-16.0); LYMPHOCYTES # (AUTO) 2.1 10^3/uL (1.5-3.5); LYMPHOCYTES % (AUTO) 30.8 %; MEAN CORPUSCULAR HGB CONC 32.4 g/dL (32.0-36.0); MEAN PLATELET VOLUME 8.8 fL (7.9-10.8); MONOCYTES # (AUTO) 0.5 10^3/uL (0.0-1.0); MONOCYTES % (AUTO) 7.4 %; NEUTROPHILS % (AUTO) 57.9 %; PLT - PLATELET COUNT 258 10^3/uL (130-450); RED BLOOD COUNT 3.63 10^6/uL (4.20-5.40); RED CELL DISTRIBUTION WIDTH 15.6 % (12.0-15.0); WHITE BLOOD COUNT 6.9 x10^3/uL (4.8-10.8)
[2023-12-07] MEDS: SODIUM CHLORIDE 0.9% 500 ML IV STA (14:15)
--- NOTE | 2023-12-07 14:21 | XRAY Report ---
PROCEDURE: Chest 1V INDICATIONS: chest pain TECHNIQUE: One view of the chest was acquired. COMPARISON: 11/19/2023. FINDINGS: Surgical changes and devices: None. Lungs and pleura: No pleural effusions or pneumothorax. Lungs are clear. Mediastinum: Mediastinal contours appear normal. Heart size is normal. Bones and chest wall: No suspicious bony lesions. Overlying soft tissues appear unremarkable. IMPRESSION: No acute cardiopulmonary process. Reviewed by: Chanda Oviedo MD, PhD on 12/07/2023 2:20 PM PST Approved by: Chanda Oviedo MD, PhD on 12/07/2023 2:20 PM PST Station ID: [id number]
[2023-12-07 14:26] LABS: ALBUMIN 3.9 g/dL (3.2-5.5); ALBUMIN/GLOBULIN RATIO 1.3 (1.0-2.2); BILIRUBIN,TOTAL 0.4 mg/dL (0.2-1.0); CALCIUM 9.4 mg/dL (8.5-10.3); CREATININE 0.9 mg/dL (0.6-1.3); MAGNESIUM 2.1 mg/dL (1.7-2.3); POTASSIUM 3.8 mmol/L (3.5-4.5)
== END 2023-12-07 15:29 | disposition home or self-care (01) ==
LOC: EDUNIT# → EDBD → ED 13:23
DX: R55 Syncope and collapse (principal); I95.89 Other hypotension; Z87.891 Personal history of nicotine dependence; Z87.01 Personal history of pneumonia (recurrent)
CPT/HCPCS: 36415; 80053; 83690; 83735; 85025; 93005; 99283; 99284

== ENCOUNTER 2024-01-26 09:10 | Outpatient (CLI) | payer MEDICARE ==
[2024-01-26 14:57] LABS: CHOL/HDL RATIO 2.5 (<4.4); CHOLESTEROL 173 mg/dL; HDL CHOLESTEROL 68 mg/dL; LDL CHOLESTEROL,CALCULATED 85 mg/dL; LDL/HDL RATIO 1.3 (<4.4); TRIGLYCERIDES 100 mg/dL (48-352); VLDL CHOLESTEROL 20 mg/dL
== END 2024-01-26 09:11 | disposition home or self-care (01) ==
LOC: LAB.S 09:10
PROVIDERS: ATTEND Physician Assistant
DX: I25.10 Atherosclerotic heart disease of native coronary artery without angina pectoris (principal)
CPT/HCPCS: 36415; 80061; 83721